=== PATIENT | female | born 1980 | race Two or more races ===

== ENCOUNTER 2019-02-21 22:38 | Emergency (ER) | payer OTHER ==
[~2019-02-21] VITALS: Ht 170.2 cm; Wt 97.5 kg
--- NOTE | 2019-02-21 22:59 | NUR ---
PT BROUGHT TO CT.
[2019-02-21] MEDS ORDERED: IV NS 0.9% 500 ML BAG IV ONE (23:00)
[2019-02-21] MEDS ORDERED: MECLIZINE HCL 12.5 MG TABLET PO ONE (23:00)
[2019-02-21] MEDS ORDERED: ONDANSETRON HCL/PF 4 MG/2 ML VIAL IVP ONE (23:00)
[2019-02-21] MEDS ORDERED: MECLIZINE HCL 25 MG TABLET ONE (23:07)
[2019-02-21] MEDS ORDERED: ONDANSETRON HCL/PF 4 MG/2 ML VIAL ONE (23:07)
--- NOTE | 2019-02-21 23:08 | NUR ---
dr hale at the bed side
[2019-02-21 23:14] LABS: APPEARANCE,URINE Clear (CLEAR); BILIRUBIN,URINE Negative (NEGATIVE); BLOOD, URINE Negative Ery/uL (NEGATIVE); COLOR,URINE Light yellow (YELLOW); KETONES,URINE Negative (NEGATIVE); LEUKOCYTE ESTERASE ,URINE Negative (NEGATIVE); NITRITE, URINE Negative (NEGATIVE); PH,URINE 6.5 (5.0-8.0); PROTEIN,URINE Negative (NEGATIVE); UGLUCOSE Negative (NEGATIVE); UROBILINOGEN,URINE 0.2 EU/dL (0.2)
[2019-02-21 23:22] LABS: BASOPHILS # (AUTO) 0.1 /CMM (0.0-0.2); BASOPHILS % (AUTO) 0.6 % (0.0-2.0); EOSINOPHILS % (AUTO) 1.2 % (0.0-6.0); HEMATOCRIT 40 % (33-45); HEMOGLOBIN 13.2 g/dL (11.5-14.8); LYMPHOCYTES # (AUTO) 3.1 /CMM (0.8-4.8); LYMPHOCYTES % (AUTO) 34.3 % (20.0-44.0); MEAN CORPUSCULAR HGB CONC 33 g/dl (31.0-36.0); MEAN CORPUSCULAR VOLUME 85 fL (82-100); MONOCYTES # (AUTO) 0.4 /CMM (0.1-1.30); MONOCYTES % (AUTO) 4.4 % (2.0-12.0); NEUTROPHILS # (AUTO) 5.3 /CMM (1.8-8.9); NEUTROPHILS % (AUTO) 59.5 % (43.0-81.0); PLATELET COUNT (AUTO) 312 /CMM (150-450); RED BLOOD CELL COUNT(AUTO) 4.72 MIL/uL (4.0-5.2)
[2019-02-21 23:29] LABS: CALCIUM, SERUM 9.4 mg/dL (8.5-10.1); CREATININE 0.8 mg/dL (0.6-1.3); POTASSIUM 3.6 mmol/L (3.5-5.1)
[2019-02-21 23:41] LABS: ALBUMIN 3.8 g/dL (3.4-5.0); BILIRUBIN,DIRECT 0.1 mg/dL (0.0-0.2); BILIRUBIN,TOTAL 0.6 mg/dL (0.2-1.0); TOTAL PROTEIN, SERUM 7.7 g/dL (6.4-8.2)
--- NOTE | 2019-02-21 23:48 | NUR ---
PT BROUGHT BACK FROM CT
[2019-02-22 00:35] VITALS: BP 130/82
--- NOTE | 2019-02-22 00:35 | NUR ---
Patient discharged to home in stable condition. Written and verbal after care instructions given. Patient verbalizes understanding of instruction. IV removed. Catheter intact and site benign. Pressure and 4x4 applied to site. No bleeding noted. PT ambulatory with a steady gait
== END 2019-02-22 00:37 | disposition home or self-care (01) ==
LOC: ER 22:43
DX: R42 Dizziness and giddiness (principal); I10 Essential (primary) hypertension; Z98.890 Other specified postprocedural states; Y08.89XA Assault by other specified means, initial encounter; Y93.89 Activity, other specified; Y92.89 Other specified places as the place of occurrence of the external cause; Y99.8 Other external cause status
CPT/HCPCS: 36415; 70450; 80048; 80076; 81001; 84703; 85025; 96374; 99284; J2405; J7040; J8597; 81000-TC

== ENCOUNTER 2019-03-04 15:18 | Emergency (ER) | payer OTHER ==
[~2019-03-04] VITALS: Ht 170.2 cm; Wt 96.2 kg
--- NOTE | 2019-03-04 15:29 | NUR ---
came in for "Low abdominal pain going to Right kidney/back was seen in [facility] last wk +UTI was given abx NOT better". to er bed 7, hooked to monitor, changed to hosp gown, awaiting md valadez
--- NOTE | 2019-03-04 15:55 | NUR ---
rosalina villafana at bedside
[2019-03-04 16:48] LABS: APPEARANCE,URINE Clear (CLEAR); BILIRUBIN,URINE Negative (NEGATIVE); BLOOD, URINE Trace-lysed Ery/uL (NEGATIVE); COLOR,URINE Yellow (YELLOW); KETONES,URINE Negative (NEGATIVE); LEUKOCYTE ESTERASE ,URINE Trace (NEGATIVE); NITRITE, URINE Negative (NEGATIVE); PH,URINE 6.5 (5.0-8.0); PROTEIN,URINE Negative (NEGATIVE); UGLUCOSE Negative (NEGATIVE); UROBILINOGEN,URINE 0.2 EU/dL (0.2)
[2019-03-04 17:17] LABS: BACTERIA,URINE Few /HPF (None Seen); SQUAMOUS EPITHELIAL CELL,UR Few /HPF (None Seen)
--- NOTE | 2019-03-04 17:33 | NUR ---
Patient discharged to home in stable condition. Written and verbal after care instructions given. Patient verbalizes understanding of instruction.
[2019-03-04 17:34] VITALS: BP 132/88
== END 2019-03-04 17:34 | disposition home or self-care (01) ==
LOC: ER 15:19
DX: R10.31 Right lower quadrant pain (principal); I10 Essential (primary) hypertension; Z98.890 Other specified postprocedural states
CPT/HCPCS: 81000-TC; 84703-TC; 87086-TC